=== PATIENT | female | born 1960 | race Caucasian/White ===

== ENCOUNTER 2019-04-24 17:29 | Emergency (ER) | payer OTHER ==
[2019-04-24] MEDS ORDERED: DIPHTH,PERTUSS(ACELL),TET 0.5 ML DISP.SYRIN IM ONE ×2 (17:33→17:42)
[2019-04-24] MEDS ORDERED: CYCLOBENZAPRINE HCL 10 MG TABLET (FP) PO ONE (17:36)
[2019-04-24] MEDS ORDERED: KETOROLAC TROMETHAMINE 60 MG/2 ML VIAL IM ONE (17:36)
[2019-04-24 17:38] VITALS: BP 161/86; PULSE 95; TEMP 98.8; BMI 27.4
[2019-04-24] MEDS ORDERED: CYCLOBENZAPRINE HCL 10 MG TABLET (FP) ONE (17:42)
[2019-04-24] MEDS ORDERED: KETOROLAC TROMETHAMINE 60 MG/2 ML VIAL ONE (17:42)
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
== END 2019-04-24 19:12 | disposition home or self-care (01) ==
LOC: JERFT 17:29
PROC: 3E0234Z Introduction of Serum, Toxoid and Vaccine into Muscle, Percutaneous Approach (ICD-10-PCS; principal; 2019-04-24)
PROC: 3E0233Z Introduction of Anti-inflammatory into Muscle, Percutaneous Approach (ICD-10-PCS; 2019-04-24)
DX: S10.91XA Abrasion of unspecified part of neck, initial encounter (principal); S00.01XA Abrasion of scalp, initial encounter; T17.308A Unspecified foreign body in larynx causing other injury, initial encounter; Y04.2XXA Assault by strike against or bumped into by another person, initial encounter; Y93.89 Activity, other specified; Y92.512 Supermarket, store or market as the place of occurrence of the external cause; Y99.0 Civilian activity done for income or pay
CPT/HCPCS: 70360-TC-FY; 90715; 99281-25

== ENCOUNTER 2024-06-05 09:36 | Emergency (ER) | payer MEDICARE, OTHER ==
[2024-06-05 09:50] VITALS: BP 134/82; PULSE 73; RESP 18; TEMP 98.4; BMI 27.4
== END 2024-06-05 10:22 | disposition home or self-care (01) ==
LOC: FER 09:36
DX: L29.9 Pruritus, unspecified (principal)
CPT/HCPCS: 99283-25